=== PATIENT | female | born 1965 | race African-American/Black ===

== ENCOUNTER 2021-03-11 20:11 | Emergency (ER) | payer OTHER ==
[~2021-03-11] VITALS: Ht 175.3 cm; Wt 90.7 kg
[2021-03-11] MEDS ORDERED: NORVASC10 MG PO (20:19)
[2021-03-11] MEDS ORDERED: HYDROCHLOROTHIA25 M1 PO (20:19)
[2021-03-11] MEDS ORDERED: METFORMIN HCL500 M3 PO (20:20)
[2021-03-11 20:48] LABS: ABSOLUTE NEUTROPHILS 6.4 thou/uL (1.4-8.2); BASOPHILS 0.8 % (0.0-2.0); EOSINOPHILS 0.9 % (0.0-3.0); HEMATOCRIT 37.7 % (37.0-47.0); HEMOGLOBIN 12.9 gm/dL (12.0-15.0); LYMPHOCYTES 20.8 % (24.0-44.0); MCHC 34.3 g/dL (28.0-37.0); MCV 90.6 fL (80.0-100.0); MONOCYTES 6.3 % (1.0-8.0); PLATELET COUNT 299 thou/uL (150-400); POLYS 71.2 % (36.0-66.0); RBC 4.16 mil/uL (4.20-5.00); RDW 13.3 % (10.5-14.5); WBC 9.1 thou/uL (4.0-11.0)
[2021-03-11 21:05] LABS: ANION GAP 12 mmol/L (7-16); BUN 15 mg/dL (7-18); CALCIUM 9.7 mg/dL (8.5-10.1); CHLORIDE 103 mmol/L (98-107); CO2 28 mmol/L (21-32); GLUCOSE 182 mg/dL (74-106); SODIUM 143 mmol/L (136-145); TROPONIN-I <0.06 ng/mL (<0.06)
[2021-03-11 21:10] LABS: POTASSIUM 2.9 mmol/L (3.5-5.1)
[2021-03-11] MEDS ORDERED: PHENERGAN 25 MG25 M1 PO (22:12)
[2021-03-11] MEDS ORDERED: POTASSIUM20 PO (22:12)
[2021-03-11] MEDS ORDERED: MECLIZINE HCL25 M1 PO (22:12)
[2021-03-11] MEDS ORDERED: ATIVAN0.5 M1 PO (22:12)
[2021-03-11 22:41] VITALS: BP 139/87
--- NOTE | 2021-03-12 09:06 | EKG ---
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
== END 2021-03-11 22:40 | disposition home or self-care (01) ==
LOC: ER 20:11
PROVIDERS: Nurse Practitioner
DX: Z79.899 Other long term (current) drug therapy (principal); Z88.8 Allergy status to other drugs, medicaments and biological substances; E87.6 Hypokalemia; R42 Dizziness and giddiness; R11.2 Nausea with vomiting, unspecified